=== PATIENT | male | born 1960 | race Hispanic/Latino ===

== ENCOUNTER 2018-09-25 22:18 | Inpatient (IN) | payer MEDICAID ==
[2018-09-25 23:47] LABS: BASO # 0.1 K/uL (0.0-0.2); BASO % 1.7 % (0.0-2.0); EOS # 0.1 K/uL (0.0-0.7); HEMOGLOBIN 12.6 g/dL (12.0-18.0); LYMPH # 0.8 K/uL (1.0-4.3); MEAN CELL VOLUME 101.6 fL (80.0-94.0); MEAN CORPUSCULAR HEMOGLOBIN 34.7 pg (27.0-31.0); MEAN CORPUSCULAR HGB CONC 34.1 g/dL (33.0-37.0); MONO # 0.6 K/uL (0.0-0.8); MONO % 12.8 % (0.0-10.0); NEUT % 66.5 % (50.0-75.0); RBC 3.63 Mil/uL (4.40-5.90); RED CELL DISTRIBUTION WIDTH 14.1 % (11.5-14.5); WHITE BLOOD COUNT 4.5 K/uL (4.8-10.8)
--- NOTE | 2018-09-25 23:50 | C.PDOC ---
History Of Present Illness 58 year old male presents to the ER for ETOH detox. Denies any complaints at this time. Chief Complaint (Nursing): Substance Abuse History Per: Patient History/Exam Limitations: no limitations Suicide/Self Injury Attempted (Context): None Involuntary Hold By: None Recent travel outside of the [place]: No Past Medical History Reviewed: Historical Data, Nursing Documentation, Vital Signs Vital Signs: Last Vital Signs Temp 98.2 F 09/25/18 22:47 Pulse 100 H 09/25/18 22:47 Resp 20 09/25/18 22:47 BP 112/74 09/25/18 22:47 Pulse Ox 98 09/25/18 22:47 - Medical History PMH: Anxiety, Depression Family History: States: Unknown Family Hx - Social History Hx Alcohol Use: Yes Hx Substance Use: No - Immunization History Hx Tetanus Toxoid Vaccination: No Hx Influenza Vaccination: No Hx Pneumococcal Vaccination: No Review Of Systems Constitutional: Negative for: Fever, Chills Cardiovascular: Negative for: Chest Pain, Palpitations Respiratory: Negative for: Cough, Shortness of Breath Gastrointestinal: Negative for: Nausea, Vomiting Neurological: Negative for: Weakness, Numbness Physical Exam - Physical Exam Appears: Non-toxic Skin: Normal Color, Warm, Dry Head: Atraumatic, Normacephalic Eye(s): bilateral: Normal Inspection Nose: Normal Oral Mucosa: Moist Neck: Normal, Supple Chest: Symmetrical, No Tenderness Cardiovascular: Rhythm Regular Respiratory: Normal Breath Sounds, No Rales, No Rhonchi, No Wheezing Gastrointestinal/Abdominal: Soft, No Tenderness Neurological/Psych: Oriented x3, Normal Speech ED Course And Treatment - Laboratory Results Result Diagrams: 09/25/18 23:44 09/25/18 23:44 O2 Sat by Pulse Oximetry: 98 (Room air) Pulse Ox Interpretation: Normal Progress Note: Blood work and urinalysis ordered. Librium administered. Disposition Doctor Will See Patient In The: Hospital Counseled Patient/Family Regarding: Diagnosis - Disposition Disposition: HOSPITALIZED Disposition Time: 00:29 Condition: STABLE Forms: [facility] (Micronesian) - Clinical Impression Clinical Impression: Alcohol use disorder - Scribe Statement The provider has reviewed the documentation as recorded by the Scribe Roberto Klein All medical record entries made by the Scribe were at my direction and personally dictated by me. I have reviewed the chart and agree that the record accurately reflects my personal performance of the history, physical exam, me dical decision making, and the department course for this patient. I have also personally directed, reviewed, and agree with the discharge instructions and disposition.
[2018-09-25 23:59] LABS: ALB/GLOB RATIO 1.6 (1.0-2.1); ALBUMIN 4.8 g/dL (3.5-5.0); ALT/SGPT 83 U/L (21-72); AST/SGOT 158 U/L (17-59); BLOOD UREA NITROGEN 13 mg/dL (9-20); GFR NON-AFRICAN AMERICAN > 60; SQUAMOUS EPITHIAL < 1 /hpf (0-5); URINE BILIRUBIN 1+ (NEGATIVE); URINE BLOOD NEGATIVE (NEGATIVE); URINE CLARITY Hazy (Clear); URINE COLOR Amber (YELLOW); URINE GLUCOSE (UA) NORMAL (Normal); URINE LEUKOCYTE ESTERASE NEG Leu/uL (Negative); URINE PROTEIN 2+ mg/dL (NEGATIVE)
[2018-09-26 00:06] LABS: BARBITURATES, UR NEGATIVE (NEGATIVE); OPIATES, UR NEGATIVE (NEGATIVE); PHENCYCLIDINE, UR NEGATIVE (NEGATIVE)
[2018-09-26 00:51] LABS: BENZODIAZEPINES, UR POSITIVE (NEGATIVE)
--- NOTE | 2018-09-26 03:41 | PCM.BM ---
<Wilbert Floyd - Last Filed: 09/26/18 03:38> Treatment Plan Problems - Problems identified on initial assessmt Knowledge deficits r/t alcohol use Date Initiated: 09/26/18 Time Initiated: 03:39 Assessment reference: NA Status: Active Defensive coping Date Initiated: 09/26/18 Time Initiated: 03:40 Assessment reference: NA Status: Active Low motivation to change Date Initiated: 09/26/18 Time Initiated: 03:40 Assessment reference: NA Status: Active Treatment assets and liabiliti Patient Assests: cooperative, educated, ADL independent, cognitively intact Patient Liabilities: substance abuse - Milieu Protocol Maintain good personal hygiene: daily Encourage regular showers, daily Remind patient to perform daily oral care, daily Assist patient to perform ADL's Maintain personal safety: every shift Educate patient to report safety concerns to staff, every shift Monitor environment for contraband/sharps Medication safety: Monitor for expected outcome, potential side effects: every shift, Assess barriers to learning: every shift, Assess readiness for medication education: every shift <Palmer Padron - Last Filed: 09/29/18 13:30> - Diagnosis (1) Alcohol use disorder Status: Acute Interventions: 09/28/18 13:30 * Assess 7x/week regarding severity of withdrawal * Educate regarding risks, benefits, side effects and alternatives of medications * Use Motivational Interviewing for abstinence * Use CBT for relapse prevention * Medication management for withdrawal symptoms * Encourage medication assisted treatment * <Zulema Mendoza - Last Filed: 09/29/18 14:45> Family Contact Family involvement: Famliy/SO not involved - Goals for Treatment Patient goals for treatment: [place] detox and return to o/p in [place] with MAT/oral naltrexone. Discharge/Continuing Care - Education Needs Education Needs: Patient Medication, Patient Diagnosis/Disease Process, Patient Coping Skills, Patient Anger Management skills, Patient Placement options, Patient Community resources, Significant Other Diagnosis/Disease Process - Discharge Discharge Criteria: No longer exhibiting s/s of withdrawal, Reduction of target symptoms Discharge to:: Home - Treatment Team Participation Patient/Family/SO Statement: 09/29/18 14:44 "I wanna go back to the [facility] in [place]. It's run by [employer]...but I'll consider Naltrexone too..." Discussed with Family/SO: No Was Patient/Family/SO present at Treatment Team Meeting: Yes
--- NOTE | 2018-09-26 07:58 | PCM.PSYCH ---
Initial Psychiatric Evaluation - Initial Psychiatric Evaluation Type of Admission: Voluntary Legal Status: Capacity Chief Complaint (in patient's own words): I came here to get help in detox.' History of Present Illness and Precipitating Events: Patient is a 58 years old male who lives alone, currently unemployed, came to the [facility] to get help in detox. Patient reports history of more than 2 inpatient psychiatric hospitalizations he was last discharged from [facility], ER almost 2 weeks ago. He reports history of follow-up with an unknown psychiatrist. Patient reports a long history of drinking. He also reports history of few detoxes in the past. His last detox was in summer 2017 in [place]. He reports that he is drinking 1-2 pints of vodka daily. His last drink was 1 day ago. Patient reports withdrawal symptoms from drinking including cramps, anxiety, headaches, shakes and sweating. He reports depressed mood but denies any feelings of hopelessness or helplessness. He denies any suicidal ideation or any homicidal ideation. He denies any auditory or visual hallucinations or any paranoia. However he reports history of multiple falls while intoxication. Past medical history None reported Current Medications: Active Medications Generic Name Dose Route Start Last Admin Trade Name Freq PRN Reason Stop Dose Admin Clonidine HCl 0.1 mg 09/26/18 03:03 09/26/18 03:14 Catapres PO 0.1 mg Q6 PRN Administration Symptoms of alcohol withdrawl Dicyclomine HCl 10 mg 09/26/18 04:09 Bentyl PO Q6 PRN Muscle spasm Hydroxyzine HCl 25 mg 09/26/18 02:55 09/26/18 03:14 Atarax PO 25 mg Q6 PRN Administration Anxiety Ibuprofen 600 mg 09/26/18 04:08 Motrin Tab PO Q6 PRN Pain, moderate (4-7) Trazodone HCl 50 mg 09/26/18 02:55 09/26/18 03:14 Desyrel PO 50 mg HS PRN Administration Insomnia Past Psychiatric History - Past Psychiatric History Previous Treatment History: Inpatient Pertinent Medical Hx (Current Medical&Sleep Prob, Allergies): Allergies Allergy/AdvReac Type Severity Reaction Status Date / Time No Known Allergies Allergy Unverified 09/25/18 22:56 Gabapentin 1,200 mg PO BID 09/25/18 Lamictal 200 mg PO DAILY 01/18/19 Prozac 60 mg PO DAILY 09/25/18 Review of Systems - Review of Systems All systems: reviewed and no additional remarkable complaints except - Psychiatric Psychiatric: Anxiety, Irritability. absent: Suicidal Ideation Mental Status Examination - Personal Presentation Personal Presentation: Looks stated age - Affect Affect: Constricted - Motor Activity Motor Activity: Calm - Reliability in Providing Information Reliability in Providing Information: Fair - Speech Speech: Organized - Mood Mood: Anxious - Formal Thought Process Formal Thought Process: No Impairment - Obsessions/Compulsions Obsessions: No Compulsions: No - Cognitive Functions Orientation: Person, Place, Situation, Time Sensorium: Alert Attention/Concentration: Attentive Abstract Thinking: [place] Estimate of Intelligence: Below average Judgement: Imparied, as evidence by: Poor judgement, Intact, as evidence by: Insight regarding need for hospitalization - Risk Risk: Withdrawal, Diminished functioning - Limitations Limitations: Living alone DSM 5 DX - DSM 5 DSM 5 Diagnosis: Alcohol use disorder severe Alcohol withdrawal Major depressive disorder recurrent moderate - Recommended/Plan of Treatment Treatment Recommendations and Plan of Treatment: Alcohol use disorder severe Alcohol withdrawal Major depressive disorder recurrent moderate CBT Psychoeducation Supportive therapy and group therapy Ativan taper -due to high LFTs Neurontin 3 mg p.o. 3 times daily Lamictal 50 mg p.o. daily Fluoxetine 40 g p.o. daily Trazodone 50 mg p.o. nightly Withdrawal medications - Smoking Cessation Smoking Cessation Initiated: No
[2018-09-26] MEDS: Multiple Vitamins Tab PO SCH (15:01)
[2018-09-27] MEDS: Multiple Vitamins Tab PO SCH (10:11)
--- NOTE | 2018-09-27 11:40 | PCM.PYCHPN ---
Psychiatric Progress Note - Psychiatric Progress Note Patient seen today, length of contact: 15 min Patient Chief Complaint: I am still withdrawing.' Problems Identified/Issues Discussed: Patient was seen and evaluated, chart reviewed and discussed with the staff. Patient still reports withdrawal symptoms from drinking including shakes, anxiety, headaches, sweating and cramps. He reports depressed mood but denies any feelings of hopelessness or helplessness. He is taking medication but denies any side effects Symptoms are improving gradually but he needs to stay longer for further stabilization. Supportive therapy was given. Medication Change: Yes Medical Record Reviewed: Yes Mental Status Examination - Cognitive Function Orientation: Person, Place, Situation, Time Memory: Intact Attention: WNL Concentration: Poor Association: WNL Fund of Knowledge: Poor - Mood Mood: Anxious - Affect Affect: Constricted - Speech Speech: Appropriate - Formal Thought Process Formal Thought Process: No Impairment - Suicidal Ideation Suicidal Ideation: No - Homicidal Ideation Homicidal Ideation: No Goal/Treatment Plan - Goal/Treatment Plan Need for Continued Stay: Remain at risks for inpatient hospitalization Progress Toward Problem(s) and Goals/Treatment Plan: Alcohol use disorder severe Alcohol withdrawal Major depressive disorder recurrent moderate CBT Psychoeducation Supportive therapy and group therapy Ativan taper -due to high LFTs Neurontin 3 mg p.o. 3 times daily Lamictal 50 mg p.o. daily Fluoxetine 40 g p.o. daily Trazodone 50 mg p.o. nightly Withdrawal medications
[2018-09-28] MEDS: Multiple Vitamins Tab PO SCH (09:21)
--- NOTE | 2018-09-28 10:07 | PCM.PYCHPN ---
Psychiatric Progress Note - Psychiatric Progress Note Patient seen today, length of contact: 15 min Patient Chief Complaint: "I am better but not much" Problems Identified/Issues Discussed: The pt is seen, chart reviewed, case discussed with staff. The pt is compliant with medications and reports no side-effects. Symptoms are improving but needs more time to stabilize. He argues back about not using naltrexione or antabuse Has low motivation and medium insight Narcissistic traits and "I've done it all" attitude - discussed Pt attends groups and activities. Support given, psycho-education provided. After care discussed. He only wants IOP Medication Change: Yes (detox changes daily) Medical Record Reviewed: Yes Mental Status Examination - Cognitive Function Orientation: Person, Place, Situation, Time Memory: Intact Attention: WNL Concentration: Poor Association: WNL Fund of Knowledge: Poor - Mood Mood: Anxious - Affect Affect: Constricted - Speech Speech: Appropriate - Formal Thought Process Formal Thought Process: No Impairment - Suicidal Ideation Suicidal Ideation: No - Homicidal Ideation Homicidal Ideation: No Goal/Treatment Plan - Goal/Treatment Plan Need for Continued Stay: Discharge may exacerbated symptoms, Severe functional impairment Progress Toward Problem(s) and Goals/Treatment Plan: Continue medications Support and psychoeducation daily Attend groups and activities daily After care planning by counselors Try to motivate for abstinence and MAT Estimated Date of D/C: 09/30/18
[2018-09-29 07:57] LABS: ALB/GLOB RATIO 1.6 (1.0-2.1); ALBUMIN 4.2 g/dL (3.5-5.0); ALT/SGPT 71 U/L (21-72); AST/SGOT 92 U/L (17-59); BLOOD UREA NITROGEN 9 mg/dL (9-20); CALCIUM 8.7 mg/dl (8.6-10.4); GFR NON-AFRICAN AMERICAN > 60
[2018-09-29] MEDS: Multiple Vitamins Tab PO SCH (09:55)
--- NOTE | 2018-09-29 13:36 | PCM.PYCHPN ---
Psychiatric Progress Note - Psychiatric Progress Note Patient seen today, length of contact: 17 min Patient Chief Complaint: "I'm doing good, and improving" Problems Identified/Issues Discussed: The pt is seen, chart reviewed, case discussed with staff. Pt reports that he is "not feeling 100%" and reports that he has been having very vivid dreams recently. Pt denies that the dreams are causing him distress and reports that they have "just been peculiar". Pt continues to have low motivation for change and continues to have narcissistic traits, stating he's tried it all. Support and psychoeducation given, CBT and AL used briefly No other symptoms reported, improving slowly and needs more time No SEs from medications, risks discussed. After care discussed, pt only wants IOP. Medication Change: Yes (detox changes daily) Medical Record Reviewed: Yes Mental Status Examination - Cognitive Function Orientation: Person, Place, Situation, Time Memory: Intact Attention: WNL Concentration: Poor Association: WNL Fund of Knowledge: Poor - Mood Mood: Anxious - Affect Affect: Constricted - Speech Speech: Appropriate - Formal Thought Process Formal Thought Process: No Impairment - Suicidal Ideation Suicidal Ideation: No - Homicidal Ideation Homicidal Ideation: No Goal/Treatment Plan - Goal/Treatment Plan Need for Continued Stay: Discharge may exacerbated symptoms, Severe functional impairment Progress Toward Problem(s) and Goals/Treatment Plan: Continue medications Support and psychoeducation daily Attend groups and activities daily After care planning by counselors Try to motivate for abstinence and MAT Estimated Date of D/C: 09/30/18
--- NOTE | 2018-09-30 08:56 | PCM.PYCHDC ---
Mental Status Examination - Mental Status Examination Orientation: Person Discharge Summary - Discharge Note Consultations:: List each consultation separately and include: 1. Reason for request. 2. Findings. 3. Follow-up Summary of Hospital Course include:: 1. Description of specific treatment plan utilized for patients during their course of treatmen. 2. Summarize the time- course for resolution of acute symptoms and/or regressed behaviors. 3. Describe issues identified and worked on during hospitalization. 4. Describe medication utilized. 5. Describe medical problems identified and treated. 6. Reassessment of suicide risk Summary of Hospital Course: He was entitled and somewhat hekp-rejecting, unmotivated. He didn't finalize any referral or anti-craving med offer. He says he will find an IOP (?) - Diagnosis (1) Alcohol use disorder Current Visit: Yes Status: Acute - Final Diagnosis (DSM 5) Condition upon Discharge: STABLE Disposition: HOME/ ROUTINE Follow-up Treatment Plan: Continue medications Support and psychoeducation daily Attend groups and activities daily After care planning by counselors Try to motivate for abstinence and MAT Prescriptions/Medication Reconciliation: FLUoxetine [Prozac] 40 mg PO DAILY #30 cap Gabapentin [Neurontin] 300 mg PO TID #90 cap hydrOXYzine HCl [Atarax] 25 mg PO BID PRN #30 tab PRN Reason: Anxiety lamoTRIgine [Lamictal] 50 mg PO DAILY #60 tab traZODone [Desyrel] 50 mg PO HS PRN #30 tab PRN Reason: Insomnia
[2018-09-30] MEDS: Multiple Vitamins Tab PO SCH (10:01)
[2018-09-30 10:32] VITALS: RESP 18; TEMP 97.8
[2018-09-30 14:05] VITALS: BP 103/69; PULSE 73; O2SAT 98
== END 2018-09-30 15:21 | disposition home or self-care (01) | DRG 772 ==
LOC: C.ER 22:18 → C.7T 09-26 01:46 → C.7D 09-26 02:30
PROVIDERS: ADMIT Internal Medicine; ATTEND Internal Medicine
PROC: HZ2ZZZZ Detoxification Services for Substance Abuse Treatment (ICD-10-PCS; principal; 2018-09-26)
PROC: HZ42ZZZ Group Counseling for Substance Abuse Treatment, Cognitive-Behavioral (ICD-10-PCS; 2018-09-26)
PROC: HZ52ZZZ Individual Psychotherapy for Substance Abuse Treatment, Cognitive-Behavioral (ICD-10-PCS; 2018-09-26)
PROC: HZ59ZZZ Individual Psychotherapy for Substance Abuse Treatment, Supportive (ICD-10-PCS; 2018-09-26)
PROC: HZ56ZZZ Individual Psychotherapy for Substance Abuse Treatment, Psychoeducation (ICD-10-PCS; 2018-09-26)
PROC: HZ46ZZZ Group Counseling for Substance Abuse Treatment, Psychoeducation (ICD-10-PCS; 2018-09-26)
PROC: GZHZZZZ Group Psychotherapy (ICD-10-PCS; 2018-09-26)
PROC: GZ58ZZZ Individual Psychotherapy, Cognitive-Behavioral (ICD-10-PCS; 2018-09-26)
PROC: GZ56ZZZ Individual Psychotherapy, Supportive (ICD-10-PCS; 2018-09-26)
DX: F10.230 Alcohol dependence with withdrawal, uncomplicated (principal); F33.1 Major depressive disorder, recurrent, moderate; Y90.0 Blood alcohol level of less than 20 mg/100 ml; F41.9 Anxiety disorder, unspecified; G47.00 Insomnia, unspecified

== ENCOUNTER 2018-10-24 15:45 | Emergency (ER) | payer MEDICAID ==
[2018-10-24 17:19] LABS: BASO # 0.1 K/uL (0.0-0.2); BASO % 1.8 % (0.0-2.0); EOS # 0.1 K/uL (0.0-0.7); EOS % 1.6 % (0.0-4.0); HEMOGLOBIN 11.9 g/dL (12.0-18.0); LYMPH # 2.1 K/uL (1.0-4.3); MEAN CELL VOLUME 102.3 fL (80.0-94.0); MEAN CORPUSCULAR HEMOGLOBIN 33.5 pg (27.0-31.0); MEAN CORPUSCULAR HGB CONC 32.7 g/dL (33.0-37.0); MEAN PLATELET VOLUME 8.3 fL (7.2-11.7); MONO # 0.6 K/uL (0.0-0.8); NEUT % 41.6 % (50.0-75.0); NRBC % 0.1 % (0.0-2.0); RBC 3.57 Mil/uL (4.40-5.90); RED CELL DISTRIBUTION WIDTH 14.4 % (11.5-14.5); WHITE BLOOD COUNT 4.8 K/uL (4.8-10.8)
[2018-10-24 17:31] LABS: SQUAMOUS EPITHIAL < 1 /hpf (0-5); URINE BILIRUBIN NEGATIVE (NEGATIVE); URINE BLOOD NEGATIVE (NEGATIVE); URINE CLARITY Clear (Clear); URINE COLOR Straw (YELLOW); URINE GLUCOSE (UA) NORMAL (Normal); URINE LEUKOCYTE ESTERASE NEG Leu/uL (Negative); URINE PROTEIN NEGATIVE (NEGATIVE); URINE UROBILINOGEN NORMAL mg/dL (0.2-1.0)
[2018-10-24 17:46] LABS: ALB/GLOB RATIO 1.6 (1.0-2.1); ALBUMIN 4.6 g/dL (3.5-5.0); ALT/SGPT 32 U/L (21-72); AST/SGOT 56 U/L (17-59); BLOOD UREA NITROGEN 9 mg/dL (9-20); CALCIUM 8.4 mg/dl (8.6-10.4); GFR NON-AFRICAN AMERICAN > 60
[2018-10-24 17:46] LABS: BARBITURATES, UR NEGATIVE (NEGATIVE); BENZODIAZEPINES, UR NEGATIVE (NEGATIVE); OPIATES, UR NEGATIVE (NEGATIVE); PHENCYCLIDINE, UR NEGATIVE (NEGATIVE)
[2018-10-24] MEDS ORDERED: Potassium Chloride 20 mEq/15 ml LIQ UD PO ONE (17:47)
--- NOTE | 2018-10-24 17:53 | C.PDOC ---
History Of Present Illness 58 y/o male pt with long hx of alcohol abuse and multiple detox presents to the ER with due to intoxication. As per , pt met up to have lunch with her when she realized that he was intoxicated even though he was detox last month, concerned, she brought pt to ER. Pt confirmed SI but no HI and states he "drank a bunch today". Pt denies any other drug use. <Tawana Chen - Last Filed: 10/25/18 13:58> <Dmitry Huitron - Last Filed: 10/25/18 06:05> History Per: Patient, Family () History/Exam Limitations: no limitations Onset/Duration Of Symptoms: Hrs Current Symptoms Are (Timing): Still Present Modifying Factor(s): Alcohol Associated Symptoms: Suicidal Thoughts <Tawana Chen - Last Filed: 10/25/18 13:58> Time Seen by Provider: 10/24/18 16:08 Chief Complaint (Nursing): Substance Abuse Past Medical History Vital Signs: Last Vital Signs Temp 97.9 F 10/25/18 05:36 Pulse 72 10/25/18 05:36 Resp 16 10/25/18 05:36 BP 123/69 10/25/18 05:36 Pulse Ox 98 10/25/18 05:36 - [facility] DETOXIFICATION SERVICES FOR SUBSTANCE ABUSE TREATMENT (09/26/18) GROUP FIRE EATER FOR SUBSTANCE ABUSE TREATMENT, PSYCHOEDUCATION (09/26/18) GROUP FIRE EATER FOR SUBSTANCE ABUSE, COGNITIVE BEHAVIORAL (09/26/18) GROUP PSYCHOTHERAPY (09/26/18) INDIV PSYCHOTHERAPY FOR SUBSTANCE ABUSE TREATMENT, SUPPORT (09/26/18) INDIV PSYCHOTHERAPY FOR SUBSTANCE ABUSE, COGNITIV BEHAVIORAL (09/26/18) INDIV PSYCHOTHERAPY FOR SUBSTANCE ABUSE, PSYCHOEDUCATION (09/26/18) INDIVIDUAL PSYCHOTHERAPY, COGNITIVE-BEHAVIORAL (09/26/18) INDIVIDUAL PSYCHOTHERAPY, SUPPORTIVE (09/26/18) <Dmitry Huitron - Last Filed: 10/25/18 06:05> Reviewed: Historical Data, Nursing Documentation, Vital Signs Vital Signs: Last Vital Signs Temp 97.7 F 10/24/18 16:01 Pulse 85 10/24/18 16:01 Resp 20 10/24/18 16:01 BP 124/87 10/24/18 16:01 Pulse Ox 90 L 10/24/18 16:01 - Medical History PMH: Anxiety, Depression - [facility] DETOXIFICATION SERVICES FOR SUBSTANCE ABUSE TREATMENT (09/26/18) GROUP FIRE EATER FOR SUBSTANCE ABUSE TREATMENT, PSYCHOEDUCATION (09/26/18) GROUP FIRE EATER FOR SUBSTANCE ABUSE, COGNITIVE BEHAVIORAL (09/26/18) GROUP PSYCHOTHERAPY (09/26/18) INDIV PSYCHOTHERAPY FOR SUBSTANCE ABUSE TREATMENT, SUPPORT (09/26/18) INDIV PSYCHOTHERAPY FOR SUBSTANCE ABUSE, COGNITIV BEHAVIORAL (09/26/18) INDIV PSYCHOTHERAPY FOR SUBSTANCE ABUSE, PSYCHOEDUCATION (09/26/18) INDIVIDUAL PSYCHOTHERAPY, COGNITIVE-BEHAVIORAL (09/26/18) INDIVIDUAL PSYCHOTHERAPY, SUPPORTIVE (09/26/18) Family History: States: Unknown Family Hx - Social History Hx Alcohol Use: Yes Hx Substance Use: Yes - Immunization History Hx Tetanus Toxoid Vaccination: No Hx Influenza Vaccination: No Hx Pneumococcal Vaccination: No <Tawana Chen - Last Filed: 10/25/18 13:58> Review Of Systems Constitutional: Negative for: Fever, Chills Cardiovascular: Negative for: Chest Pain Respiratory: Negative for: Cough Gastrointestinal: Negative for: Nausea, Vomiting Genitourinary: Negative for: Dysuria Musculoskeletal: Negative for: Neck Pain Skin: Negative for: Rash Neurological: Negative for: Weakness, Numbness Psych: Positive for: Suicidal ideation. Negative for: Other (HI) <Tawana Chen M - Last Filed: 10/25/18 13:58> Physical Exam - Physical Exam Appears: Non-toxic, No Acute Distress, Other (intoxicated but arousable to voice ) Skin: Warm, Dry Head: Normacephalic Eye(s): bilateral: Normal Inspection Oral Mucosa: Other (alcohol on breath ) Chest: Symmetrical, No Deformity Cardiovascular: Rhythm Regular Respiratory: Normal Breath Sounds, No Rales, No Rhonchi, No Wheezing Gastrointestinal/Abdominal: Soft, No Tenderness Neurological/Psych: Oriented x3, No Normal Speech (slurred speech ) <Tawana Chen - Last Filed: 10/25/18 13:58> ED Course And Treatment - Laboratory Results Result Diagrams: 10/24/18 17:16 10/24/18 17:16 Lab Results: Total Bilirubin 0.4 mg/dL (0.2-1.3) 10/24/18 17:16 AST 56 U/L (17-59) 10/24/18 17:16 ALT 32 U/L (21-72) 10/24/18 17:16 Alkaline Phosphatase 172 U/L (38-126) H D 10/24/18 17:16 Total Protein 7.5 g/dL (6.3-8.3) 10/24/18 17:16 Albumin 4.6 g/dL (3.5-5.0) 10/24/18 17:16 Globulin 2.9 gm/dL (2.2-3.9) 10/24/18 17:16 Albumin/Globulin Ratio 1.6 (1.0-2.1) 10/24/18 17:16 Urine Color Straw (YELLOW) 10/24/18 17:25 Urine Clarity Clear (Clear) 10/24/18 17:25 Urine pH 6.0 (5.0-8.0) 10/24/18 17:25 Ur Specific [place] 1.002 (1.003-1.030) L 10/24/18 17:25 Urine Protein Negative mg/dL (NEGATIVE) 10/24/18 17:25 Urine Glucose (UA) Normal mg/dL (Normal) 10/24/18 17:25 Urine Ketones Negative mg/dL (NEGATIVE) 10/24/18 17:25 Urine Blood Negative (NEGATIVE) 10/24/18 17:25 Urine Nitrate Negative (NEGATIVE) 10/24/18 17:25 Urine Bilirubin Negative (NEGATIVE) 10/24/18 17:25 Urine Urobilinogen Normal mg/dL (0.2-1.0) 10/24/18 17:25 Ur Leukocyte Esterase Neg Karmen/uL (Negative) 10/24/18 17:25 Urine RBC (Auto) < 1 /hpf (0-3) 10/24/18 17:25 Ur Squamous Epith Cells < 1 /hpf (0-5) 10/24/18 17:25 Lab Interpretation: Abnormal (etoh 466 @ 1600 hrs) Pulse Ox Interpretation: Abnormal Reevaluation Time: 06:05 Reassessment Condition: Improved (d/w CRisis, pt defers psych adm, pt declined Detox bed) <Dmitry Huitron - Last Filed: 10/25/18 06:05> - Laboratory Results Result Diagrams: 10/24/18 17:16 10/24/18 17:16 Lab Results: Total Bilirubin 0.4 mg/dL (0.2-1.3) 10/24/18 17:16 AST 56 U/L (17-59) 10/24/18 17:16 ALT 32 U/L (21-72) 10/24/18 17:16 Alkaline Phosphatase 172 U/L (38-126) H D 10/24/18 17:16 Total Protein 7.5 g/dL (6.3-8.3) 10/24/18 17:16 Albumin 4.6 g/dL (3.5-5.0) 10/24/18 17:16 Globulin 2.9 gm/dL (2.2-3.9) 10/24/18 17:16 Albumin/Globulin Ratio 1.6 (1.0-2.1) 10/24/18 17:16 Urine Color Straw (YELLOW) 10/24/18 17:25 Urine Clarity Clear (Clear) 10/24/18 17:25 Urine pH 6.0 (5.0-8.0) 10/24/18 17:25 Ur Specific [place] 1.002 (1.003-1.030) L 10/24/18 17:25 Urine Protein Negative mg/dL (NEGATIVE) 10/24/18 17:25 Urine Glucose (UA) Normal mg/dL (Normal) 10/24/18 17:25 Urine Ketones Negative mg/dL (NEGATIVE) 10/24/18 17:25 Urine Blood Negative (NEGATIVE) 10/24/18 17:25 Urine Nitrate Negative (NEGATIVE) 10/24/18 17:25 Urine Bilirubin Negative (NEGATIVE) 10/24/18 17:25 Urine Urobilinogen Normal mg/dL (0.2-1.0) 10/24/18 17:25 Ur Leukocyte Esterase Neg Karmen/uL (Negative) 10/24/18 17:25 Urine RBC (Auto) < 1 /hpf (0-3) 10/24/18 17:25 Ur Squamous Epith Cells < 1 /hpf (0-5) 10/24/18 17:25 O2 Sat by Pulse Oximetry: 90 (RA) Pulse Ox Interpretation: Normal <Tawana Chen - Last Filed: 10/25/18 13:58> Medical Decision Making Medical Decision Making: Plans: -- chem labs -- blood work -- Potassium chloride -- Crisis consult Patient pending full crisis eval, currently too intoxicated. Patient signed out to Dr. Huitron at 00:00, still pending crisis eval. <Tawana Chen - Last Filed: 10/25/18 13:58> Disposition Doctor Will See Patient In The: Office Counseled Patient/Family Regarding: Studies Performed, Diagnosis - Disposition Disposition Time: 06:06 <Dmitry Huitron - Last Filed: 10/25/18 06:05> <Tawana Chen - Last Filed: 10/25/18 13:58> - Disposition Referrals: Alcoholics Anonymous [Outside] [facility] [Outside] [facility] [Outside] [facility] [Outside] [facility] [Outside] Disposition: HOME/ ROUTINE Condition: GOOD Additional Instructions: continue to seek outside resources for your alcohol abuse Instructions: Alcohol Abuse and Alcoholism (DC) Forms: [facility] (Turkish) - Clinical Impression Clinical Impression: Alcohol use disorder - Scribe Statement The provider has reviewed the documentation as recorded by the Scribe Jim Do Provider Attestation: All medical record entries made by the Scribe were at my direction and personally dictated by me. I have reviewed the chart and agree that the record accurately reflects my personal performance of the history, physical exam, medical decision making, and the department course for this patient. I have also personally directed, reviewed, and agree with the discharge instructions and disposition. <Tawana Chen - Last Filed: 10/25/18 13:58>
[2018-10-24] MEDS ORDERED: Potassium Chloride 20 mEq ER Tab PO ONE (18:36)
[2018-10-24 20:13] VITALS: RESP 16
[2018-10-25 05:39] VITALS: BP 123/69; PULSE 72; TEMP 97.9
[2018-10-25 13:58] VITALS: O2SAT 90
== END 2018-10-25 07:07 | disposition home or self-care (01) ==
LOC: C.ER 15:45
DX: F10.10 Alcohol abuse, uncomplicated (principal); F32.9 Major depressive disorder, single episode, unspecified

== ENCOUNTER 2018-10-27 15:22 | Inpatient (IN) | payer MEDICAID ==
--- NOTE | 2018-10-27 16:15 | C.PDOC ---
History Of Present Illness 58 year old male with history of alcohol abuse, anxiety, depression, presents to ED requesting detox from alcohol. Patient states he drank 750 mL of liquor today at 5am. He denies any other drug use, suicidal ideation, homicidal kale ation, hallucinations, tremor, seizures, chest pain, SOB, abdominal pain, nausea, vomiting, back pain, cough, fever, chills, rash, or any other associated symptoms. Time Seen by Provider: 10/27/18 16:13 Chief Complaint (Nursing): Substance Abuse History Per: Patient History/Exam Limitations: no limitations Suicide/Self Injury Attempted (Context): None Modifying Factor(s): Alcohol Associated Symptoms: denies: Suicidal Thoughts, Suicidal Plan Past Medical History Reviewed: Historical Data, Nursing Documentation, Vital Signs Vital Signs: Last Vital Signs Temp 98.4 F 10/27/18 16:09 Pulse 99 H 10/27/18 16:09 Resp 18 10/27/18 16:09 BP 112/71 10/27/18 16:09 Pulse Ox 98 10/27/18 16:09 - Medical History PMH: Anxiety, Depression Denies: Diabetes, Hepatitis, HIV, HTN, Seizures, Sexually Transmitted Disease Surgical History: No Surg Hx - [facility] Procedures DETOXIFICATION SERVICES FOR SUBSTANCE ABUSE TREATMENT (09/26/18) GROUP LIVING SUPERVISOR FOR SUBSTANCE ABUSE TREATMENT, PSYCHOEDUCATION (09/26/18) GROUP LIVING SUPERVISOR FOR SUBSTANCE ABUSE, COGNITIVE BEHAVIORAL (09/26/18) GROUP PSYCHOTHERAPY (09/26/18) INDIV PSYCHOTHERAPY FOR SUBSTANCE ABUSE TREATMENT, SUPPORT (09/26/18) INDIV PSYCHOTHERAPY FOR SUBSTANCE ABUSE, COGNITIV BEHAVIORAL (09/26/18) INDIV PSYCHOTHERAPY FOR SUBSTANCE ABUSE, PSYCHOEDUCATION (09/26/18) INDIVIDUAL PSYCHOTHERAPY, COGNITIVE-BEHAVIORAL (09/26/18) INDIVIDUAL PSYCHOTHERAPY, SUPPORTIVE (09/26/18) Family History: States: Unknown Family Hx - Social History Hx Alcohol Use: Yes Hx Substance Use: No - Immunization History Hx Tetanus Toxoid Vaccination: No Hx Influenza Vaccination: No Hx Pneumococcal Vaccination: No Review Of Systems Constitutional: Negative for: Fever, Chills, Weakness Eyes: Negative for: Vision Change, Redness ENT: Negative for: Nose Congestion Cardiovascular: Negative for: Chest Pain, Palpitations Respiratory: Negative for: Cough, Shortness of Breath Gastrointestinal: Negative for: Nausea, Vomiting, Abdominal Pain Musculoskeletal: Negative for: Back Pain Skin: Negative for: Rash Neurological: Negative for: Weakness, Numbness, Seizures, Headache, Dizziness Psych: Negative for: Suicidal ideation, Other (homicidal ideation) Physical Exam - Physical Exam Appears: Non-toxic, Other (appears intoxicated) Skin: Normal Color, Warm, Dry Head: Atraumatic, Normacephalic Eye(s): bilateral: Normal Inspection, PERRL, EOMI Nose: Normal Oral Mucosa: Moist Neck: Normal ROM, Supple Chest: Symmetrical, No Deformity Cardiovascular: Rhythm Regular, No Murmur Respiratory: Normal Breath Sounds, No Accessory Muscle Use, No Rales, No Rhonchi, No Stridor Gastrointestinal/Abdominal: Soft, No Tenderness Extremity: Normal ROM, Capillary Refill (<2 seconds) Extremity: Bilateral: Atraumatic, Normal Color And Temperature Pulses: Left Radial: Normal, Right Radial: Normal Neurological/Psych: Oriented x3, Normal Speech, Normal Cognition, Normal Motor, Normal Sensation Gait: Steady ED Course And Treatment - Laboratory Results Result Diagrams: 10/27/18 16:35 10/27/18 16:35 O2 Sat by Pulse Oximetry: 98 (RA) Medical Decision Making Medical Decision Making: Impression: Detox Plan: Bloodwork with alcohol, acetaminophen, salicylate levels UA UDS 1740: Labwork and urine reviewed; Patient medically cleared for psychiatric admission. 1838: Advised by crisis team that patient is to be admitted to detox unit under Dr. Padron. Alcohol abuse disorder severe. 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 (Harriett Tijerina) - Scribe Statement The provider has reviewed the documentation as recorded by the Scribe (Harriett Tijerina) All medical record entries made by the Scribe were at my direction and personally dictated by me. I have reviewed the chart and agree that the record accurately reflects my personal performance of the history, physical exam, medical decision making, and the department course for this patient. I have also personally directed, reviewed, and agree with the discharge instructions and disposition.
[2018-10-27 16:42] LABS: BASO # 0.1 K/uL (0.0-0.2); BASO % 1.4 % (0.0-2.0); EOS # 0.3 K/uL (0.0-0.7); EOS % 5.2 % (0.0-4.0); HEMOGLOBIN 12.3 g/dL (12.0-18.0); LYMPH # 1.6 K/uL (1.0-4.3); LYMPH % 25.3 % (20.0-40.0); MEAN CELL VOLUME 101.6 fL (80.0-94.0); MEAN CORPUSCULAR HEMOGLOBIN 33.5 pg (27.0-31.0); MEAN PLATELET VOLUME 8.6 fL (7.2-11.7); MONO # 0.8 K/uL (0.0-0.8); MONO % 12.6 % (0.0-10.0); NEUT # 3.6 K/uL (1.8-7.0); NEUT % 55.5 % (50.0-75.0); NRBC % 0.1 % (0.0-2.0); RBC 3.66 Mil/uL (4.40-5.90); RED CELL DISTRIBUTION WIDTH 14.6 % (11.5-14.5); WHITE BLOOD COUNT 6.5 K/uL (4.8-10.8)
[2018-10-27 16:47] LABS: URINE BILIRUBIN NEGATIVE (NEGATIVE); URINE BLOOD NEGATIVE (NEGATIVE); URINE CLARITY Clear (Clear); URINE COLOR Colorless (YELLOW); URINE GLUCOSE (UA) NORMAL (Normal); URINE LEUKOCYTE ESTERASE NEG Leu/uL (Negative); URINE PROTEIN NEGATIVE (NEGATIVE); URINE UROBILINOGEN NORMAL mg/dL (0.2-1.0)
[2018-10-27 16:55] LABS: ACETAMINOPHEN < 10.0 ug/mL (10.0-30.0); SALICYLATE < 1.0 mg/dL 1
[2018-10-27 16:59] LABS: ALB/GLOB RATIO 1.6 (1.0-2.1); ALBUMIN 4.9 g/dL (3.5-5.0); ALT/SGPT 84 U/L (21-72); AST/SGOT 209 U/L (17-59); BLOOD UREA NITROGEN 15 mg/dL (9-20); CALCIUM 9.1 mg/dl (8.6-10.4); GFR NON-AFRICAN AMERICAN > 60
[2018-10-27 17:02] LABS: BARBITURATES, UR NEGATIVE (NEGATIVE); BENZODIAZEPINES, UR NEGATIVE (NEGATIVE); OPIATES, UR NEGATIVE (NEGATIVE); PHENCYCLIDINE, UR NEGATIVE (NEGATIVE)
--- NOTE | 2018-10-27 19:32 | PCM.BM ---
<Kavita Klein - Last Filed: 10/27/18 19:31> Treatment Plan Problems - Problems identified on initial assessmt Anxiety Related to Substance Use Date Initiated: 10/27/18 Time Initiated: 19:31 Assessment reference: NA Status: Active Defensive Coping Date Initiated: 10/27/18 Time Initiated: 19:31 Status: Active Knowledge Deficit : Alcohol Use Date Initiated: 10/27/18 Time Initiated: 19:32 Assessment reference: NA Status: Active Treatment assets and liabiliti Patient Assests: cooperative, educated, ADL independent, negotiates basic needs, cognitively intact Patient Liabilities: substance abuse - Milieu Protocol Maintain good personal hygiene: daily Encourage regular showers, daily Remind patient to perform daily oral care, daily Assist patient to perform ADL's Conduct patient checks and document Observation sheet: Q15 minutes Maintain personal safety: every shift Educate patient to report safety concerns to staff, every shift Monitor environment for contraband/sharps Medication safety: Monitor for expected outcome, potential side effects: every shift, Assess barriers to learning: every shift, Assess readiness for medication education: every shift <Palmer Padron - Last Filed: 10/29/18 12:09> - Diagnosis (1) Alcohol use disorder, severe, dependence Status: Acute Interventions: 10/29/18 12:09 * Assess 7x/week regarding severity of withdrawal * Educate regarding risks, benefits, side effects and alternatives of medications * Use Motivational Interviewing for abstinence * Use CBT for relapse prevention * Medication management for withdrawal symptoms * Encourage medication assisted treatment *
--- NOTE | 2018-10-28 14:27 | PCM.PSYCH ---
Initial Psychiatric Evaluation - Initial Psychiatric Evaluation Type of Admission: Voluntary Legal Status: Capacity Chief Complaint (in patient's own words): "I want to stop drinking." History of Present Illness and Precipitating Events: Patient is a 53 year old male who is but , has no children, lives alone in an apartment, and is currently unemployed, his works. He presented to the ED on 10/27 and was admitted to the [facility] detox unit for alcohol detox. At that time his BAL was 241. Patient is experiencing shakiness, anxiety, and feels as though his heart is racing. When asked about his mood, he comments that he has been feeling depressed for the past several months. He says that he has low energy, decreased sleep quality, lack of appetite, diminished motivation, and anhedonia. He also says that he has been passive suicidal ideations, but currently has no plan or intention. He has been drinking 1 pint of liquor daily for the last 40 years. His last drink was on 10/27 when he had 750mL of liquor prior to his admission here. His longest time sober was 6 months. He had a seizure due to alcohol withdrawal in 2014 and ended up in a coma for 8 days. He has been to detox units for alcohol 4 times in the past: [facility], a unit in [place], and here at [facility] on 09/26/18. He has been to rehabilitation units for alcohol 3 times in the past: [facility] in [place], [facility] in [place], and [facility] in [place]. He denies any illicit drug use. He has smoked 5-7 cigarettes daily for the last 2 years, commenting that he had previously smoked for 13 years but then quit for 9 years and then relapsed 2 years ago. He currently denies homicidal ideations, visual hallucinations, and auditory hallucinations. PMHx: Radial nerve paralysis, he has obvious scar and disability b/c of that PsychHx: Anxiety. Major Depressive Disorder, questionable Bipolar Disorder Psych Hospitalizations: 01/23 and 08/25 both for suicidal ideation FMPsychHx: Mentions that both his mother and his father were alcoholics Medications: Gabapentin, lamictal, doxepin, fluoxetine 60mg (Ran out of meds recently) Allergies: Gluten Current Medications: Active Medications Generic Name Dose Route Start Last Admin Trade Name Freq PRN Reason Stop Dose Admin Clonidine HCl 0.1 mg 10/27/18 19:35 Catapres PO Q4H PRN Symptoms of alcohol withdrawl Influenza Virus Vaccine 60 mcg 10/29/18 10:00 Flucelvax Quad 9584-4905 Syr IM 10/29/18 10:01 .ONCE ONE Lorazepam 1 mg 10/27/18 19:35 10/27/18 21:22 Ativan PO 1 mg Q4H PRN Administration Symptoms of alcohol withdrawl Lorazepam 2 mg 10/28/18 00:00 10/28/18 12:56 Ativan PO 11/01/18 23:59 2 mg Q4 GABINO Administration Taper Pneumococcal Polyvalent Vaccine 0.5 ml 10/29/18 10:00 Pneumovax 23 Vaccine IM 10/29/18 10:01 .ONCE ONE Trazodone HCl 50 mg 10/27/18 19:37 10/27/18 21:22 Desyrel PO 50 mg HS PRN Administration Insomnia Past Psychiatric History - Past Psychiatric History Previous Treatment History: Inpatient Pertinent Medical Hx (Current Medical&Sleep Prob, Allergies): Allergies Allergy/AdvReac Type Severity Reaction Status Date / Time No Known Allergies Allergy Verified 10/27/18 16:12 Gabapentin 1,200 mg PO BID 09/25/18 Lamictal 200 mg PO DAILY 09/25/18 Prozac 60 mg PO DAILY 09/25/18 FLUoxetine [Prozac] 40 mg PO DAILY #30 cap 09/30/18 Gabapentin [Neurontin] 300 mg PO TID #90 cap 09/30/18 hydrOXYzine HCl [Atarax] 25 mg PO BID PRN #30 tab 09/30/18 lamoTRIgine [Lamictal] 50 mg PO DAILY #60 tab 09/30/18 traZODone [Desyrel] 50 mg PO HS PRN #30 tab 09/30/18 Review of Systems - Psychiatric Psychiatric: Abnormal Sleep Pattern, Anhedonia, Anxiety, Behavioral Changes, Depression, Suicidal Ideation (vague and w/o plan, contracts for safety). absent: Auditory Hallucinations, Difficulty Concentrating, Homicidal Ideation, Visual Hallucinations Mental Status Examination - Personal Presentation Personal Presentation: Looks older than stated age - Affect Affect: Broad - Motor Activity Motor Activity: Calm - Reliability in Providing Information Reliability in Providing Information: Good - Speech Speech: Organized - Mood Mood: Depressed - Formal Thought Process Formal Thought Process: No Impairment - Obsessions/Compulsions Obsessions: No Compulsions: No - Cognitive Functions Orientation: Person, Place, Situation, Time Sensorium: Alert Attention/Concentration: Attentive Abstract Thinking: Wayne Judgement: Intact, as evidence by: Insight regarding need for hospitalization Memory: Recent intact, as evidence by: Ability to recall events of the day - Risk Risk: Seizure, Withdrawal - Strength & Assets Inventory Strength & Assets Inventory: Cooperative DSM 5 DX - DSM 5 DSM 5 Diagnosis: Alcohol withdrawal Alcohol use disorder, severe Tobacco use disorder, moderate Generalized Anxiety Disorder Major Depressive Disorder, recurrent, severe - Recommended/Plan of Treatment Treatment Recommendations and Plan of Treatment: Taper with Ativan Gabapentin for augmentation Prozac for depression Abilify for irritability and to augment As needed medications All risks, benefits and alternatives of the meds discussed, and the pt agreed and understood. Attend groups and activities Supportive therapy and psychoeducation GA for abstinence CBT for relapse prevention Encourage MAT Refer to rehab or IOP, and self-help groups Teach healthy lifestyle methods, i.e. diet, exercise, meditation Smoking cessation with GA Nicotine patch if needed 34 min Projected ELOS: 4-5 days Prognosis: Good, with treatment - Smoking Cessation Smoking Cessation Initiated: Yes
[2018-10-29] MEDS: Multiple Vitamins Tab PO SCH (09:36)
[2018-10-29] MEDS ORDERED: Influenza Vaccine 60 mcg/0.5 mL SYR (4YR UP) IM ONE (10:00)
[2018-10-29] MEDS ORDERED: Pneumococcal 23-Valent Vaccine IM ONE (10:00)
--- NOTE | 2018-10-29 12:10 | PCM.PYCHPN ---
Psychiatric Progress Note - Psychiatric Progress Note Patient seen today, length of contact: 16 min Patient Chief Complaint: "I'm fatigued" Problems Identified/Issues Discussed: The pt is seen, chart reviewed, case discussed with staff. The pt is compliant with medications and reports no side-effects. Symptoms are improving but needs more time to stabilize. Pt attends groups and activities. Support given, psycho-education provided. After care discussed. Medication Change: Yes (detox changes daily) Medical Record Reviewed: Yes Mental Status Examination - Cognitive Function Orientation: Person, Place, Situation, Time Memory: Intact Attention: WNL Concentration: Poor Association: WNL Fund of Knowledge: WNL - Mood Mood: Depressed - Affect Affect: Broad - Speech Speech: Appropriate - Formal Thought Process Formal Thought Process: No Impairment - Suicidal Ideation Suicidal Ideation: No - Homicidal Ideation Homicidal Ideation: No Goal/Treatment Plan - Goal/Treatment Plan Need for Continued Stay: Discharge may exacerbated symptoms, Severe functional impairment Progress Toward Problem(s) and Goals/Treatment Plan: Taper with Ativan Gabapentin for augmentation Prozac for depression Abilify for irritability and to augment As needed medications All risks, benefits and alternatives of the meds discussed, and the pt agreed and understood. Attend groups and activities Supportive therapy and psychoeducation NE for abstinence CBT for relapse prevention Encourage MAT Refer to rehab or IOP, and self-help groups Teach healthy lifestyle methods, i.e. diet, exercise, meditation Smoking cessation with NE Nicotine patch if needed Estimated Date of D/C: 11/02/18
[2018-10-30] MEDS: Multiple Vitamins Tab PO SCH (10:39)
--- NOTE | 2018-10-30 14:52 | PCM.PYCHPN ---
Psychiatric Progress Note - Psychiatric Progress Note Patient seen today, length of contact: 16 min Patient Chief Complaint: "I'm anxious today" Problems Identified/Issues Discussed: The pt is seen, chart reviewed, case is discussed with staff. Support and psychoeducation given, CBT and OK used briefly The pt is improving slowly but needs more time due to severity of symptoms and relapse risk. No SEs from medications, risks discussed. After care discussed - he says he has to move out from his apt and after that he can go to a rehab. Medication Change: Yes (detox changes daily) Medical Record Reviewed: Yes Mental Status Examination - Cognitive Function Orientation: Person, Place, Situation, Time Memory: Intact Attention: WNL Concentration: Poor Association: WNL Fund of Knowledge: WNL - Mood Mood: Depressed - Affect Affect: Broad - Speech Speech: Appropriate - Formal Thought Process Formal Thought Process: No Impairment - Suicidal Ideation Suicidal Ideation: No - Homicidal Ideation Homicidal Ideation: No Goal/Treatment Plan - Goal/Treatment Plan Need for Continued Stay: Discharge may exacerbated symptoms, Severe functional impairment Progress Toward Problem(s) and Goals/Treatment Plan: Taper with Ativan Gabapentin for augmentation Prozac for depression Abilify for irritability and to augment As needed medications All risks, benefits and alternatives of the meds discussed, and the pt agreed and understood. Attend groups and activities Supportive therapy and psychoeducation OK for abstinence CBT for relapse prevention Encourage MAT Refer to rehab or IOP, and self-help groups Teach healthy lifestyle methods, i.e. diet, exercise, meditation Smoking cessation with OK Nicotine patch if needed Estimated Date of D/C: 11/02/18
[2018-10-31 06:32] VITALS: RESP 18
[2018-10-31] MEDS: Multiple Vitamins Tab PO SCH (09:46)
[2018-11-01 06:24] VITALS: O2SAT 98
[2018-11-01 09:07] VITALS: BP 103/78; PULSE 86; TEMP 98.7
[2018-11-01] MEDS: Multiple Vitamins Tab PO SCH (10:06)
== END 2018-11-01 11:50 | disposition home or self-care (01) | DRG 430 ==
LOC: C.ER 15:22 → C.7D 18:38
PROVIDERS: ADMIT Psychiatry & Neurology Psychiatry; ATTEND Psychiatry & Neurology Psychiatry
PROC: GZHZZZZ Group Psychotherapy (ICD-10-PCS; principal; 2018-10-27)
PROC: GZ56ZZZ Individual Psychotherapy, Supportive (ICD-10-PCS; 2018-10-27)
DX: F33.2 Major depressive disorder, recurrent severe without psychotic features (principal); R56.9 Unspecified convulsions; F10.230 Alcohol dependence with withdrawal, uncomplicated; F41.1 Generalized anxiety disorder; R45.851 Suicidal ideations; F17.200 Nicotine dependence, unspecified, uncomplicated; Y90.8 Blood alcohol level of 240 mg/100 ml or more

== ENCOUNTER 2018-11-05 13:42 | Emergency (ER) | payer MEDICAID ==
[2018-11-05 13:51] VITALS: BP 112/68; PULSE 86; RESP 20; TEMP 98.4; O2SAT 95
--- NOTE | 2018-11-05 14:25 | C.PDOC ---
History Of Present Illness 58 year old male brought to ED by ambulance for public intoxication. Patient's called because he was intoxicated at home. Patient has previously had inpatient detox at [facility] from 10/27- 10/30. Patient will soon be going to rehab. Patient denies suicidal ideation ad homicidal ideation. Time Seen by Provider: 11/05/18 13:48 Chief Complaint (Nursing): Substance Abuse History Per: Patient, EMS, Family () History/Exam Limitations: intoxication Onset/Duration Of Symptoms: Hrs Current Symptoms Are (Timing): Still Present Suicide/Self Injury Attempted (Context): None Modifying Factor(s): Alcohol Associated Symptoms: denies: Suicidal Thoughts, Suicidal Plan Past Medical History Reviewed: Historical Data, Nursing Documentation, Vital Signs Vital Signs: Last Vital Signs Temp 98.4 F 11/05/18 13:50 Pulse 86 11/05/18 13:50 Resp 20 11/05/18 13:50 BP 112/68 11/05/18 13:50 Pulse Ox 95 11/05/18 13:50 - Medical History PMH: Anxiety, Bipolar Disorder, Depression Denies: Diabetes, Hepatitis, HIV, HTN, Seizures, Sexually Transmitted Disease Surgical History: No Surg Hx - [facility] Procedures DETOXIFICATION SERVICES FOR SUBSTANCE ABUSE TREATMENT (09/26/18) GROUP LANDSCAPE NURSERYMAN FOR SUBSTANCE ABUSE TREATMENT, PSYCHOEDUCATION (09/26/18) GROUP LANDSCAPE NURSERYMAN FOR SUBSTANCE ABUSE, COGNITIVE BEHAVIORAL (09/26/18) GROUP PSYCHOTHERAPY (10/27/18) INDIV PSYCHOTHERAPY FOR SUBSTANCE ABUSE TREATMENT, SUPPORT (09/26/18) INDIV PSYCHOTHERAPY FOR SUBSTANCE ABUSE, COGNITIV BEHAVIORAL (09/26/18) INDIV PSYCHOTHERAPY FOR SUBSTANCE ABUSE, PSYCHOEDUCATION (09/26/18) INDIVIDUAL PSYCHOTHERAPY, COGNITIVE-BEHAVIORAL (09/26/18) INDIVIDUAL PSYCHOTHERAPY, SUPPORTIVE (10/27/18) Family History: States: Unknown Family Hx - Social History Hx Alcohol Use: Yes Hx Substance Use: Yes - Immunization History Hx Tetanus Toxoid Vaccination: No Hx Influenza Vaccination: No Hx Pneumococcal Vaccination: No Review Of Systems Constitutional: Negative for: Fever, Chills, Weakness Cardiovascular: Negative for: Chest Pain, Palpitations Respiratory: Negative for: Cough, Shortness of Breath Gastrointestinal: Negative for: Nausea, Vomiting, Abdominal Pain Musculoskeletal: Negative for: Back Pain Neurological: Negative for: Weakness, Numbness, Dizziness Psych: Negative for: Suicidal ideation, Other (homicidal ideation) Physical Exam - Physical Exam Appears: Non-toxic, No Acute Distress, Other (thin,white male, alcohol on breath) Skin: Normal Color, Warm, Dry Head: Atraumatic, Normacephalic Neck: Normal ROM, Supple Chest: Symmetrical, No Deformity Cardiovascular: Rhythm Regular, No Murmur Respiratory: No Accessory Muscle Use Gastrointestinal/Abdominal: Soft, No Tenderness Extremity: Bilateral: Atraumatic, Normal Color And Temperature Neurological/Psych: Oriented x3, Normal Speech Gait: Steady ED Course And Treatment O2 Sat by Pulse Oximetry: 95 (RA) Progress Note: Patient is stable for discharge. Discussed results and plan with patient who expresses understanding. All questions answered and there is agreement with the plan to discharge home with instructions. Patient stable for discharge. Return if symptoms persist or worsen. Medical Decision Making Medical Decision Making: persistent alcohol abuse stable gait no SI/HI recent detox, already in a Rehab program (per pt) but BIBA From home by 's 911 call no acute injuries Crisis defers adm for psych/detox (not available) ok for opt f/u. Disposition Doctor Will See Patient In The: Office Counseled Patient/Family Regarding: Studies Performed, Diagnosis - Disposition Referrals: Alcoholics Anonymous [Outside] Behavioral Health Counselor Service [Outside] [facility] [Outside] [facility] [Outside] [facility] [Outside] [facility] [Outside] Disposition: HOME/ ROUTINE Disposition Time: 14:25 Condition: GOOD Additional Instructions: Detox not available today continue outpatient eval for Detox/Rehab Seek AA Instructions: Alcohol Abuse and Alcoholism (DC) Forms: [facility] ([place]) - Clinical Impression Clinical Impression: Alcohol abuse - Scribe Statement The provider has reviewed the documentation as recorded by the Scribe (Harriett Tijerina) All medical record entries made by the Scribe were at my direction and personally dictated by me. I have reviewed the chart and agree that the record accurately reflects my personal performance of the history, physical exam, medical decision making, and the department course for this patient. I have also personally directed, reviewed, and agree with the discharge instructions and disposition.
== END 2018-11-05 15:09 | disposition home or self-care (01) ==
LOC: C.ER 13:42
DX: F10.10 Alcohol abuse, uncomplicated (principal); Y90.9 Presence of alcohol in blood, level not specified

== ENCOUNTER 2018-11-05 18:30 | Emergency (ER) | payer MEDICAID ==
[2018-11-05 18:38] VITALS: BP 133/79; PULSE 89; RESP 16; TEMP 97.8; O2SAT 96
--- NOTE | 2018-11-05 19:00 | C.PDOC ---
History Of Present Illness 58 year old male brought by ambulance to ED for public intoxication. Patient was discharged from [facility] ED at 2:25 pm today for the same reason. Patient was evicted from his apartment. He drank more alcohol when he went back to his apartment and got into an argument with his landlord. [employer] was called and he was brought here. Patient is requesting detox. Time Seen by Provider: 11/05/18 18:58 Chief Complaint (Nursing): Substance Abuse History Per: Patient History/Exam Limitations: intoxication Onset/Duration Of Symptoms: Hrs Current Symptoms Are (Timing): Still Present Suicide/Self Injury Attempted (Context): None Modifying Factor(s): Alcohol Associated Symptoms: denies: Suicidal Thoughts, Suicidal Plan Past Medical History Reviewed: Historical Data, Nursing Documentation, Vital Signs Vital Signs: Last Vital Signs Temp 97.8 F 11/05/18 18:37 Pulse 89 11/05/18 18:37 Resp 16 11/05/18 18:37 BP 133/79 11/05/18 18:37 Pulse Ox 96 11/05/18 18:37 - Medical History PMH: Anxiety, Bipolar Disorder, Depression Denies: Diabetes, Hepatitis, HIV, HTN, Seizures, Sexually Transmitted Disease Surgical History: No Surg Hx - [facility] Procedures DETOXIFICATION SERVICES FOR SUBSTANCE ABUSE TREATMENT (09/26/18) GROUP MEDICATION NURSE FOR SUBSTANCE ABUSE TREATMENT, PSYCHOEDUCATION (09/26/18) GROUP MEDICATION NURSE FOR SUBSTANCE ABUSE, COGNITIVE BEHAVIORAL (09/26/18) GROUP PSYCHOTHERAPY (10/27/18) INDIV PSYCHOTHERAPY FOR SUBSTANCE ABUSE TREATMENT, SUPPORT (09/26/18) INDIV PSYCHOTHERAPY FOR SUBSTANCE ABUSE, COGNITIV BEHAVIORAL (09/26/18) INDIV PSYCHOTHERAPY FOR SUBSTANCE ABUSE, PSYCHOEDUCATION (09/26/18) INDIVIDUAL PSYCHOTHERAPY, COGNITIVE-BEHAVIORAL (09/26/18) INDIVIDUAL PSYCHOTHERAPY, SUPPORTIVE (10/27/18) Family History: States: Unknown Family Hx - Social History Hx Alcohol Use: Yes Hx Substance Use: No - Immunization History Hx Tetanus Toxoid Vaccination: No Hx Influenza Vaccination: No Hx Pneumococcal Vaccination: No Review Of Systems Constitutional: Negative for: Fever, Chills, Weakness Cardiovascular: Negative for: Chest Pain Respiratory: Negative for: Cough, Shortness of Breath Gastrointestinal: Negative for: Nausea, Vomiting, Abdominal Pain Skin: Negative for: Rash Neurological: Negative for: Weakness, Numbness, Dizziness Physical Exam - Physical Exam Appears: Non-toxic, No Acute Distress, Other (alcohol on breath ) Skin: Normal Color, Warm, Dry Head: Atraumatic, Normacephalic Neck: Normal ROM, Supple Chest: Symmetrical, No Deformity Respiratory: No Accessory Muscle Use Gastrointestinal/Abdominal: Soft, No Tenderness Neurological/Psych: Other (Alert, awake, and stable) ED Course And Treatment O2 Sat by Pulse Oximetry: 96 (RA) Progress Note: Discussed plan with patient who expresses understanding. All questions answered and there is agreement with the plan to discharge home with instructions. Patient stable for discharge. Medical Decision Making Medical Decision Making: persistent alcohol abuse evaled earlier today and went back home (to where he has been evicted) police involved, and referred to ED for re-eval grossly unchanged from earlier today, admits to more etoh today has money and clothing and phone to arrange for a place to stay tonight Disposition Doctor Will See Patient In The: Office Counseled Patient/Family Regarding: Studies Performed, Diagnosis - Disposition Referrals: Alcoholics Anonymous [Outside] [facility] [Outside] [facility] [Outside] [facility] [Outside] [employer] [Outside] Disposition: HOME/ ROUTINE Disposition Time: 19:00 Condition: GOOD Additional Instructions: continue to seek outpatient Detox/Rehab programs Seek nightly group home/hotel accommodations Instructions: Alcohol Abuse and Alcoholism (DC) Forms: [facility] (Bermudian) - Clinical Impression Clinical Impression: Alcohol abuse - Scribe Statement The provider has reviewed the documentation as recorded by the Scribe (Harriett Tijerina) All medical record entries made by the Scribe were at my direction and personally dictated by me. I have reviewed the chart and agree that the record accurately reflects my personal performance of the history, physical exam, medical decision making, and the department course for this patient. I have also personally directed, reviewed, and agree with the discharge instructions and disposition.
== END 2018-11-05 20:36 | disposition home or self-care (01) ==
LOC: C.ER 18:30
DX: F10.10 Alcohol abuse, uncomplicated (principal); Y90.9 Presence of alcohol in blood, level not specified

== ENCOUNTER 2018-12-08 00:20 | Emergency (ER) | payer MEDICAID ==
--- NOTE | 2018-12-08 00:42 | C.PDOC ---
History Of Present Illness 58 year old male presents with acute ETOH intoxication. Patient had an appointment at [facility] for rehab but states his uber equipment driver brought him here because he was drunk. Denies SI or HI. Time Seen by Provider: 12/08/18 00:42 Chief Complaint (Nursing): Substance Abuse History Per: Patient History/Exam Limitations: no limitations Onset/Duration Of Symptoms: Hrs Current Symptoms Are (Timing): Still Present Suicide/Self Injury Attempted (Context): None Modifying Factor(s): Alcohol Severity: None Pain Scale Rating Of: 0 Associated Symptoms: denies: Suicidal Thoughts, Other (Homicidal ideation) Involuntary Hold By: None Recent travel outside of the [place]: No Past Medical History Reviewed: Historical Data, Nursing Documentation, Vital Signs Vital Signs: Last Vital Signs Temp 98.2 F 12/08/18 00:25 Pulse 66 12/08/18 00:25 Resp 22 12/08/18 00:25 BP 102/63 12/08/18 00:25 Pulse Ox 98 12/08/18 00:25 - Medical History PMH: Anxiety, Bipolar Disorder, Depression Denies: Diabetes, Hepatitis, HIV, HTN, Seizures, Sexually Transmitted Disease - [facility] Procedures DETOXIFICATION SERVICES FOR SUBSTANCE ABUSE TREATMENT (09/26/18) GROUP NURSE CLINICIAN FOR SUBSTANCE ABUSE TREATMENT, PSYCHOEDUCATION (09/26/18) GROUP NURSE CLINICIAN FOR SUBSTANCE ABUSE, COGNITIVE BEHAVIORAL (09/26/18) GROUP PSYCHOTHERAPY (10/27/18) INDIV PSYCHOTHERAPY FOR SUBSTANCE ABUSE TREATMENT, SUPPORT (09/26/18) INDIV PSYCHOTHERAPY FOR SUBSTANCE ABUSE, COGNITIV BEHAVIORAL (09/26/18) INDIV PSYCHOTHERAPY FOR SUBSTANCE ABUSE, PSYCHOEDUCATION (09/26/18) INDIVIDUAL PSYCHOTHERAPY, COGNITIVE-BEHAVIORAL (09/26/18) INDIVIDUAL PSYCHOTHERAPY, SUPPORTIVE (10/27/18) Family History: States: Unknown Family Hx - Social History Hx Alcohol Use: Yes Hx Substance Use: No - Immunization History Hx Tetanus Toxoid Vaccination: No Hx Influenza Vaccination: No Hx Pneumococcal Vaccination: No Review Of Systems Constitutional: Negative for: Fever, Chills Cardiovascular: Negative for: Chest Pain, Palpitations Respiratory: Negative for: Cough, Shortness of Breath Gastrointestinal: Negative for: Nausea, Vomiting Neurological: Negative for: Weakness, Numbness Psych: Negative for: Suicidal ideation, Other (Homicidal ideation) Physical Exam - Physical Exam Appears: Non-toxic, Other (ETOH on breath, no sign of injury) Skin: Warm, Dry Head: Normacephalic Oral Mucosa: Moist Chest: Symmetrical, No Tenderness Cardiovascular: Rhythm Regular Respiratory: No Rales, No Rhonchi, No Wheezing Gastrointestinal/Abdominal: Soft, No Tenderness Neurological/Psych: Oriented x3 ED Course And Treatment O2 Sat by Pulse Oximetry: 98 (room air) Pulse Ox Interpretation: Normal Reevaluation Time: 04:55 Reassessment Condition: Improved Disposition Counseled Patient/Family Regarding: Studies Performed, Diagnosis, Need For Followup - Disposition Referrals: [facility] [Outside] Disposition: HOME/ ROUTINE Disposition Time: 00:42 Condition: FAIR Instructions: Alcohol Use - When Is Drinking a Problem?, Alcohol Abuse and Alcoholism (DC) Forms: [employer] ([place]) - Clinical Impression Clinical Impression: Alcohol use disorder - Scribe Statement The provider has reviewed the documentation as recorded by the Scribe Roberto Klein All medical record entries made by the Scribe were at my direction and personally dictated by me. I have reviewed the chart and agree that the record accurately reflects my personal performance of the history, physical exam, medical decision making, and the department course for this patient. I have also personally directed, reviewed, and agree with the discharge instructions and disposition.
[2018-12-08 04:33] VITALS: RESP 16
[2018-12-08 04:55] VITALS: O2SAT 98
[2018-12-08 06:26] VITALS: BP 107/64; PULSE 68; TEMP 97.6
== END 2018-12-08 06:30 | disposition home or self-care (01) ==
LOC: C.ER 00:20
DX: F10.10 Alcohol abuse, uncomplicated (principal); Y90.9 Presence of alcohol in blood, level not specified